=== PATIENT | female | born 1955 | race Caucasian/White ===

== ENCOUNTER → 2020-06-11 09:29 | Outpatient (CLI) | payer MEDICARE, SELFPAY ==
--- NOTE | ~2020-06-11 | MR_ITS ---
EXAMINATION: MR shoulder LT wo con DATE: 06/11/2020 10:19 INDICATION: Left shoulder calcific tendinitis TECHNIQUE: Magnetic resonance imaging (MRI) of the left shoulder was performed without intravenous co ntrast. Sequences included axial PD-weighted FS FSE, coronal oblique PD-weighted FS FSE, coronal obli que T2-weighted FS FSE, sagittal PD-weighted FS FSE, and sagittal T1-weighted SE. COMPARISON: None. FINDINGS: Coracoacromial arch: The acromion undersurface is curved in morphology (type II). Tiny subacromial spur along the acromial insertion of the normal coracoacromial ligament. Mild acromioclavicular osteoarthritis. Rotator cuff: Moderate supraspinatus and mild infraspinatus tendinopathy. Small partial-thickness tear along the bu rsal side of the superior facet insertion of the supraspinatus tendon measuring 4 mm AP, 1-2 mm in me dial to lateral width and involving approximately one third of the tendon thickness. There is mild fo cus of low signal intensity along side the tear which likely represents the calcification related to calcific tendinitis as seen at this location on the prior radiographs. The teres minor and subscapula ris tendons are normal. Normal rotator cuff muscle bulk and signal. Biceps tendon, glenoid labrum and glenohumeral cartilage: Long head of the biceps tendon is normal. Glenoid labrum is normal. Glenohumeral cartilage is normal. Fluid: Physiologic amount of fluid in the glenohumeral joint and biceps tendon sheath. No loose osteochondra l bodies. Small amount of fluid in the subacromial/subdeltoid bursa consistent with mild bursitis. Bones: Normal marrow signal with no edema, fracture or abnormal marrow replacing process. IMPRESSION: 1. Supraspinatus calcific tendinitis with moderate surrounding tendinopathy and small mild bursal paul ed tear at the superior facet insertion. 2. Mild subacromial/subdeltoid bursitis. Reviewed, dictated and finalized at location A. WALL SPRAYER IMPRESSION: 1. Supraspinatus calcific tendinitis with moderate surrounding tendinopathy and small mild bursal sided tear at the superior facet insertion. 2. Mild subacromial/subdeltoid bursitis.
== END ==
PROVIDERS: Visit Provider Orthopaedic Surgery
DX: M75.32 Calcific tendinitis of left shoulder (principal); M75.52 Bursitis of left shoulder
CPT/HCPCS: 73221

== ENCOUNTER → 2020-10-24 01:18 | Outpatient (CLI) | payer MEDICARE, SELFPAY ==
[2020-10-24 16:44] LABS: SARS-CoV-2 RNA PCR Negative
== END ==
PROVIDERS: PCP Internal Medicine; Visit Provider Orthopaedic Surgery
DX: Z01.812 Encounter for preprocedural laboratory examination (principal); Z20.822 Contact with and (suspected) exposure to COVID-19
CPT/HCPCS: C9803; U0003; U0005

== ENCOUNTER 2020-10-27 00:10 | Day surgery (SDC) | payer MEDICARE, SELFPAY ==
[2020-10-13 13:02] VITALS: BMI 29.2
[2020-10-27] VITALS (13 sets, daily range): BP systolic 76–146; BP diastolic 42–58; PULSE 46–72; RESP 10–18; TEMP 35.7–36.5; O2SAT 91–96
--- NOTE | 2020-10-27 07:22 | WPDHPUPDATE1 ---
History and Physical Update Update Date/Time: 10/27/20 07:22 Subtle, 1 cm superficial scratches on both arms posteriorly. No evidence for infection or drainage. History and Physical has been reviewed, including an updated exam of the patient. There are NO changes in the patient's condition. Risks, benefits, and alternatives have been discussed and questions answered. Patient agrees to proceed with procedure.
--- NOTE | 2020-10-27 07:51 | WPDANESEPPF ---
Anes - Initial Pre Proc Eval Procedure: Operation Date: 10/27/20 11:00 Proposed Procedures p Left Shoulder Arthroscopic Rotator Cuff Repair with Subacromial Decompression - Ronni Blair MD Date/Time: 10/27/20 07:51 Surgeon: Ronni Blair MD Pre Op Diagnosis: partial rotator cuff tear, tendonitis left Patient Data Age: 65 Gender: F Height: 1.65 m Weight: 79.54 kg Allergies Allergy/AdvReac Type Severity Reaction Status Date / Time Penicillins Allergy Severe Rash Verified 10/27/20 09:44 Home Medications Medication Instructions Recorded Confirmed Type lorazepam 0.5 mg tablet 0.5 mg PO DAILY PRN 04/01/20 10/27/20 History tramadol 50 mg tablet 50 mg PO Q6H PRN 04/01/20 10/27/20 History Patient hx anesthesia problems: other (hypotension in PACU after Right shoulder sx, and ankle sx several years ago) Family hx anesthesia problems: none PMFSH Past Medical History Medical History Anxiety Chronic pain of right heel Surgical History Surgical History (Updated 10/27/20 @ 07:51 by Joe Buchanan DO) History of x3 Social History Social History Smoking status: Never smoker Second hand tobacco smoke exposure: No Alcohol intake: current Alcohol use details: STATES MAYBE 1-2 DRINKS A MONTH Substance use: never Substance use type: does not use Living arrangements: with family Spiritual care concerns: No Anes - Eval Final PreProcedure Day of Procedure 10/27/20 07:51 Patient weight: overweight Heart: regular rate and rhythm Lungs: clear to auscultation and normal air movement Airway: Mallampati scale class III Neurological: alert and oriented Last oral intake: >/= 8 hours ASA classification: II Emergent: no Anesthetic plan: proceed Anesthesia type and monitoring: general ETT and standard monitoring Informed Consent: The patient's anesthetic plan and its attendant risks and benefits were discussed with the patient/family/POA. Questions were solicited and answers provided to the satisfaction of the patient/family/POA.
--- NOTE | 2020-10-27 07:55 | WPDANESPNB ---
Anes - Peripheral Nerve Block Date/Time: 10/27/20 07:55 I have discussed with the patient/family/POA the placement of a peripheral nerve block for post-operative pain management, including associated risks, benefits, complications, and side effects. Alternative methods of post-operative analgesia were detailed. Questions were solicited and answers provided to the satisfaction of the patient/family/POA. Time-Out: A pre-procedural Time-Out was completed immediately before starting the procedure and confirmed: Patient Identification, Site, Procedure, Patient Position and the Availability of Requisite Equipment. Clinical Indications: Acute post-operative pain management requested by the operative surgeon. Nerve Block Insertion Note Anes-nerve block: interscalene left Patient position: supine Skin prep: chlorhexidine Needle: 22 gauge, stimulating, insulated echogenic needle. Needle length: 50 mm Technique: ultrasound Injectate: bupivacaine 0.5% with epi 5 mcg/ml (30cc- no epi) Observations: tolerated well Complications: none Procedure start time:: 1056 Procedure end time:: 1058
--- NOTE | 2020-10-27 09:35 | SUR.PREOP ---
Dr. Blair notified that patient has healing scratch on bilateral upper arms from exiting chicken coop. states he will see patient to decide if safe to proceed with surgery.
[2020-10-27] MEDS: ACETAMINOPHEN 500 MG TABLET 1000 MG PO (10:34)
[2020-10-27] MEDS: KETOROLAC 15 MG/ML VIAL (*BKC) IV PUSH (10:35)
[2020-10-27] MEDS: LACTATED RINGERS 1,000 ML 30 ML IV CONT ×2 (10:37→14:05)
[2020-10-27] MEDS: ceFAZolin 2 GM/D5W 50 ML 2 GM/50 ML BAG IVPB (11:05)
--- NOTE | 2020-10-27 14:31 | SUR.PHASEI ---
Simple mask removed at 1420.
[2020-10-27] MEDS: ONDANSETRON INJ 4 MG/2 ML VIAL IV PUSH (14:40)
[2020-10-27] MEDS: SCOPOLAMINE 1.5 MG PATCH TRANSDERM (14:52)
[2020-10-27] MEDS: diphenhydrAMINE HCl INJ 50 MG/ML VIAL 25 MG IV PUSH (14:54)
--- NOTE | 2020-10-27 16:18 | W.PM.PROC2 ---
Procedure Note - Detailed Date of Procedure 10/27/20 Pre-op Diagnosis partial rotator cuff tear, tendonitis left Post-op Diagnosis other (1. Left rotator cuff tear (complete) 2. SLAP tear 3. Subacromial impingement) Procedure Performed 1. Arthroscopic rotator cuff repair 2. Arthroscopic subacromial decompression 3. Arthroscopic biceps tenotomy Surgeon Ronni Blair MD Contract Technician Glenna Kilgore PA-C Anesthesia general and regional ( interscalene block) Findings The rotator cuff had a small rent in the articular side at the supraspinatus anteriorly. On the bursal side, the tear was quite significant, without any retraction but with a wide area of delamination off of the rotator cuff footprint. Repair was accomplished with 2 bone tunnels and 6 suture tapes. There was an extensive degenerative superior labral tear which was treated with biceps tenotomy. Evidence of significant external impingement treated with subacromial decompression. Description of Procedure Physician emergency medicine physician assistant, Glenna Kilgore PA-C, required for surgery; including patient positioning, draping, arthroscopic camera operation, maintaining instrument position, suture retrieval, wound closure, and dressing and sling placement. Preoperative antibiotics were given. An interscalene block was administered in the preoperative area. The patient was bought brought to the operating room. A general anesthetic was administered. The patient was carefully positioned in the lateral decubitus position. The head and neck were carefully positioned. The non operative extremity was also carefully positioned. The shoulder was prepped and draped in the usual sterile fashion. Examination was performed. Standard posterior and anterior arthroscopic portals were established. Inflow achieved with the arthroscopic pump using saline and epinephrine. The glenohumeral joint was carefully inspected. The articular cartilage was healthy. The degenerative slap tear was quite extensive. Partial articular side rotator cuff tearing was evident as well as a very small complete area at the supraspinatus. This was most evident when observed from the bursal side. Attention was turned to the subacromial space. A complete bursectomy was performed. The rotator cuff and footprint were lightly debrided. A modest acromioplasty was performed. The tear configuration was carefully assessed. At this point, 2 tunnels were created at the rotator cuff. The ArthroTunneler technique was utilized. Three sutures were passed through each tunnel. All sutures were then passed through the cuff tissue. The sutures were tied arthroscopically. The arthroscopic instruments were removed. The wounds were closed with 3-0 Monocryl subcuticular suture and steri strips. There were no complications. A sling was applied and the patient brought to the recovery room. Estimated Blood Loss -10.0 Drains No Pathology none sent Complications No immediate complications Condition stable Disposition PACU
== END 2020-10-27 17:01 | disposition home or self-care (01) ==
PROVIDERS: PCP Internal Medicine; Visit Provider Orthopaedic Surgery
PROC: (CPT 29805; principal; 2020-10-27 11:00)
DX: M75.122 Complete rotator cuff tear or rupture of left shoulder, not specified as traumatic (principal); M75.82 Other shoulder lesions, left shoulder; M75.32 Calcific tendinitis of left shoulder; G89.18 Other acute postprocedural pain; M25.812 Other specified joint disorders, left shoulder; F41.9 Anxiety disorder, unspecified
CPT/HCPCS: 29827; 29826; 64415; A9270; C9803; J0690; J1200; J1885; J2250; J2405; J3010; J7120; U0003; U0005

== ENCOUNTER → 2020-11-20 03:22 | Outpatient (CLI) | payer MEDICARE, SELFPAY ==
[2020-11-20 18:53] LABS: SARS-CoV-2 RNA PCR Negative
== END ==
PROVIDERS: PCP Internal Medicine; Visit Provider Internal Medicine Gastroenterology
DX: Z01.812 Encounter for preprocedural laboratory examination (principal); Z20.822 Contact with and (suspected) exposure to COVID-19
CPT/HCPCS: C9803; U0003; U0005

== ENCOUNTER 2020-11-23 01:39 | Day surgery (SDC) | payer MEDICARE, SELFPAY ==
[2020-11-19 16:09] VITALS: BMI 30.2
[2020-11-23] VITALS (7 sets, daily range): BP systolic 115–155; BP diastolic 52–78; PULSE 53–76; RESP 14–22; TEMP 36–36.4; O2SAT 99–100; BMI 30.4
--- NOTE | ~2020-11-23 | XR_ITS ---
EXAMINATION: XR ERCP DATE: 11/23/2020 13:48 INDICATION: Cholelithiasis. TECHNIQUE: 1 spot fluoroscopic image of the right upper quadrant was obtained during endoscopic retro grade cholangiopancreatography (ERCP). Fluoroscopy exposure time was 29 seconds. COMPARISON: None. FINDINGS: The endoscope is in the second portion of the duodenum. The biliary tree is not opacified o n this image. IMPRESSION: 1. Endoscope in the second portion of the duodenum. Please refer to the ERCP procedure note for addit ional details. Reviewed, dictated and finalized at location A. IMPRESSION: 1. Endoscope in the second portion of the duodenum. Please refer to the ERCP pr ocedure note for additional details.
--- NOTE | 2020-11-23 12:14 | P.PNAN_ITS ---
Anes - Initial Pre Proc Eval Procedure: Operation Date: 11/23/20 12:30 Proposed Procedures p Endoscopic Retro Cholangiopancreatogram - Aurelio Thomas MD Date/Time: 11/23/20 12:14 Surgeon: Aurelio Thomas MD Pre Op Diagnosis: biliary colic, abnormal LFT Patient Data Age: 65 Gender: F Height: 1.65 m Weight: 82.5 kg Allergies Allergy/AdvReac Type Severity Reaction Status Date / Time Penicillins Allergy Severe Rash Verified 11/23/20 12:09 Home Medications Medication Instructions Recorded Confirmed Type lorazepam 0.5 mg tablet 0.5 mg PO DAILY PRN 04/01/20 11/19/20 History tramadol 50 mg tablet 50 mg PO Q6H PRN 04/01/20 11/19/20 History oxycodone-acetaminophen 1 - 2 tablet PO Q4-6H PRN #30 10/27/20 11/19/20 Rx tablet MDD 8 tablets cholecalciferol (vitamin D3) 125 125 mcg PO DAILY 11/17/20 11/19/20 History mcg (5,000 unit) capsule vit C,D-Zt-jzkgw-lutein-zeaxan 1 tablet PO BID 11/19/20 11/19/20 History [PreserVision AREDS-2] Patient hx anesthesia problems: none Family hx anesthesia problems: none [facility] Past Medical History Medical History (Updated 11/23/20 @ 12:14 by Domenico Wyatt MD) Anxiety Chronic pain of right heel Obesity Surgical History Surgical History (Updated 11/23/20 @ 12:14 by Domenico Wyatt MD) History of x3 History of cholecystectomy History of shoulder surgery Social History Social History Smoking status: Never smoker Second hand tobacco smoke exposure: No Alcohol intake: current Alcohol use details: STATES MAYBE 1-2 DRINKS A MONTH Substance use: never Substance use type: does not use Living arrangements: with family Spiritual care concerns: No Anes - Eval Final PreProcedure Day of Procedure 11/23/20 12:14 Patient weight: obese Heart: regular rate and rhythm Lungs: clear to auscultation Airway: Mallampati scale class II Neurological: alert and oriented Last oral intake: >/= 8 hours ASA classification: II Emergent: no Anesthetic plan: proceed Anesthesia type and monitoring: general ETT and standard monitoring Informed Consent: The patient's anesthetic plan and its attendant risks and benefits were discussed with the patient/family/POA. Questions were solicited and answers provided to the satisfaction of the patient/family/POA.
--- NOTE | 2020-11-23 12:21 | PM.HPGS ---
History of Present Illness History of Present Illness Consent: Risks, benefits, and alternatives have been discussed and questions answered. Patient agrees to proceed with procedure. Chief complaint: biliary colic, abnormal LFT Narrative: Cecile Hu is a 65 year old female with a history of gallstones and cholecystectomy who is now having recurrent gallbladder type attacks. Her liver enzymes have been elevated periodically, suggestive of choledocholithiasis. an MRI was done that was negative. Because the high suspicion that she has common bile duct sludge or stones she is undergoing ERCP. The procedure and risks such as the possibility of bleeding or perforation or pancreatitis and even hospitalization and or the need for surgery has all been discussed Review of Systems Review of Systems: All systems reviewed & are unremarkable except as noted in HPI and below PMFSH Past Medical History Medical History Anxiety Chronic pain of right heel Obesity Surgical History Surgical History History of x3 History of cholecystectomy History of shoulder surgery Social History Social History Smoking status: Never smoker Second hand tobacco smoke exposure: No Alcohol intake: current Alcohol use details: STATES MAYBE 1-2 DRINKS A MONTH Substance use: never Substance use type: does not use Living arrangements: with family Spiritual care concerns: No Meds Home Medications and Allergies Home Medications Medication Instructions Recorded Confirmed Type lorazepam 0.5 mg tablet 0.5 mg PO DAILY PRN 04/01/20 11/19/20 History tramadol 50 mg tablet 50 mg PO Q6H PRN 04/01/20 11/19/20 History oxycodone-acetaminophen 1 - 2 tablet PO Q4-6H PRN #30 10/27/20 11/19/20 Rx tablet MDD 8 tablets cholecalciferol (vitamin D3) 125 125 mcg PO DAILY 11/17/20 11/19/20 History mcg (5,000 unit) capsule vit C,X-Hg-machm-lutein-zeaxan 1 tablet PO BID 11/19/20 11/19/20 History [PreserVision AREDS-2] Allergies Allergy/AdvReac Type Severity Reaction Status Date / Time Penicillins Allergy Severe Rash Verified 11/23/20 12:09 Exam Resp: Auscultation: clear to auscultation bilaterally Cardio: Rate: regular rate Rhythm: regular rhythm GI: GI Palp: Yes Soft to palpation and No Tenderness to palpation present (GI) Assessment and Plan Assessment and plan (1) Abnormal liver enzymes: Code(s): R74.8 - Abnormal levels of other serum enzymes Status: Acute Assessment and Plan: ERCP with possible sphincterotomy or stent placement
[2020-11-23] MEDS: LACTATED RINGERS 1,000 ML 150 ML IV CONT (12:27)
[2020-11-23] MEDS: INDOMETHACIN 50 MG SUPP.RECT 100 MG RECTAL (13:04)
[2020-11-23] MEDS: ACETAMINOPHEN 500 MG TABLET 1000 MG PO (14:51)
== END 2020-11-23 14:55 | disposition home or self-care (01) ==
PROVIDERS: PCP Internal Medicine; Visit Provider Internal Medicine Gastroenterology
PROC: (CPT 43260; principal; 2020-11-23 12:30)
DX: R74.8 Abnormal levels of other serum enzymes (principal); K83.1 Obstruction of bile duct; F41.9 Anxiety disorder, unspecified; E66.9 Obesity, unspecified; Z68.30 Body mass index [BMI] 30.0-30.9, adult
CPT/HCPCS: 43260; 74329; A9270; C9803; J1100; J1610; J2405; J2704; J3010; J7120; U0003; U0005

== ENCOUNTER → 2021-12-07 14:03 | Outpatient (CLI) | payer MEDICARE, SELFPAY ==
--- NOTE | ~2021-12-07 | MR_ITS ---
EXAMINATION: MR cervical spine wo con DATE: 12/07/2021 14:38 INDICATION: Left-sided cervical radiculopathy. TECHNIQUE: Magnetic resonance imaging (MRI) of the cervical spine was performed without intravenous c ontrast. Sequences included sagittal T2-weighted FSE, sagittal T2-weighted FS FSE, sagittal T1-weight ed FSE, axial MERGE, and axial T2-weighted FSE. COMPARISON: None FINDINGS: There is 2 mm anterolisthesis of T7 on T1. Vertebral body heights are normal. There is mild ly decreased disc height at C4-C5, moderately decreased disc height at C5-C6, and severely decreased disc height at C6-C7. The spinal cord signal intensity is normal. The following disc levels are speci fically discussed: C2-C3: The disc does not extend beyond the endplate margin. There is no uncovertebral joint osteoarth ritis. There is ankylosis of the facet joints with moderate hypertrophy. There is mild right neural f oraminal stenosis. There is no central canal stenosis. C3-C4: There is a central extrusion. There is moderate right and mild left uncovertebral joint osteoa rthritis. There is severe right and moderate left facet joint osteoarthritis. There is mild bilateral neural foraminal stenosis. There is mild central canal stenosis. C4-C5: The disc does not extend beyond the endplate margin. There is mild bilateral uncovertebral harvinder nt osteoarthritis. There is severe bilateral facet joint osteoarthritis. There is mild right neural f oraminal stenosis. There is no central canal stenosis. C5-C6: The disc is bulging. There is severe bilateral uncovertebral joint osteoarthritis. There is se josie bilateral facet joint osteoarthritis. There is moderate right and mild left neural foraminal jesus nosis. There is mild central canal stenosis. C6-C7: The disc is bulging. There is severe bilateral uncovertebral joint osteoarthritis. There is mo derate bilateral facet joint osteoarthritis. There is moderate bilateral neural foraminal stenosis. T here is mild central canal stenosis. C7-T1: The disc does not extend beyond the endplate margin. There is no uncovertebral joint osteoarth ritis. There is moderate right and severe left facet joint osteoarthritis. There is mild left neural foraminal stenosis. There is no central canal stenosis. IMPRESSION: 1. Severe cervical spondylosis. Reviewed, dictated and finalized at location A.
== END ==
PROVIDERS: PCP Internal Medicine; Visit Provider Orthopaedic Surgery
DX: M47.22 Other spondylosis with radiculopathy, cervical region (principal)
CPT/HCPCS: 72141

== ENCOUNTER 2023-11-01 10:28 | Outpatient (CLI) | payer MEDICARE, SELFPAY ==
--- NOTE | ~2023-11-01 | CT_ITS ---
EXAMINATION: CT LE RT wo con DATE: 11/01/2023 10:02 INDICATION: Right knee osteoarthritis for preoperative evaluation. TECHNIQUE: High resolution computed tomography (CT) of the right lower limb from the hip through the ankle was performed without intravenous contrast. Additional sagittal and coronal reconstructions wer e performed. Automated exposure control and iterative reconstruction technique were employed. The dos e-length product was 1786.80 mGy-cm. COMPARISON: None FINDINGS: Mid diaphyseal fracture deformity of the right femur which is healed with slight zigzag deformity. Dallin ne alignment is otherwise normal. No acute fracture. Mild right hip osteoarthritis. Chondrocalcinosis and tricompartmental osteoarthritis at the right knee, severe at the medial compartment mild degener ative subchondral changes with eburnation mild cystlike change along the medial tibial plateau and we ightbearing medial femoral condyle. At least mild osteoarthritis in the lateral and patellofemoral co mpartments. There are a few scattered loose osteochondral bodies at the recess is anterior and high school assistant principal ior to the intercondylar notch. No right knee joint effusion. Additional mild polyarticular osteoarth ritis at multiple joints the right foot and ankle. No ankle joint effusion. There are couple small lo ose osteochondral bodies at the anterior recess of the ankle joint. Dystrophic calcifications along t he posterior talofibular ligament. Small heterotopic ossicle along the anterior margin of the lateral malleolus with along the anterior talofibular ligament and small enthesophytes along the anterior to the medial malleolus. IMPRESSION: 1. Chondrocalcinosis severe medial compartment predominant tricompartmental osteoarthritis of the rig ht knee. 2. Old healed fracture deformity of the mid right femoral diaphysis. Reviewed, dictated and finalized at location A. IMPRESSION: 1. Chondrocalcinosis severe medial compartment predominant tricompartmental ost eoarthritis of the right knee. 2. Old healed fracture deformity of the mid right femoral diaphysis.
--- NOTE | 2023-11-01 10:02 | ECG_ITS ---
Test Date: 2023-11-01 10:16:40 Measurements Intervals [place] Rate: 47 P: 50 WV: 160 QRS: 16 QRSD: 84 T: -21 QT: 452 QTc: 403 Interpretive Statements SINUS BRADYCARDIA BORDERLINE ST-T WAVE ABNORMALITY- ANT/INF LEADS ABNORMAL ECG No previous ECG available for comparison Electronically Signed On 11-01-2023 10:23:48 CDT by Moisés Vivas D.O.
[2023-11-01 11:49] LABS: Albumin Level 4.3 g/dL (3.5-5.1); Estimated Glomerular Filt Rate > 60
== END 2023-11-01 10:29 | disposition home or self-care (01) ==
PROVIDERS: PCP Internal Medicine; Visit Provider Orthopaedic Surgery
DX: M17.11 Unilateral primary osteoarthritis, right knee (principal); R94.31 Abnormal electrocardiogram [ECG] [EKG]
CPT/HCPCS: 36415; 73700; 82040; 82565; 93005

== ENCOUNTER 2023-12-13 09:12 | Outpatient (CLI) | payer MEDICARE, SELFPAY ==
[2023-12-13 13:19] LABS: Basophils Absolute Auto 0.1 K/mm3 (0.0-0.1); Basophils Percent Auto 0.9 % (0.2-1.2); Eosinophils Absolute Auto 0.1 K/mm3 (0-0.3); Eosinophils Percent Auto 1.8 % (0-4.4); Hematocrit 49.7 % (37.0-47.0); Hemoglobin 15.2 g/dL (12.0-15.0); Immature Granulocyte Absolute 0.01 K/mm3 (0.00-0.031); Immature Granulocyte Percent A 0.1 % (0-0.5); Lymphocytes Absolute Auto 3.58 K/mm3 (0.9-3.2); Lymphocytes Percent Auto 45.9 % (18.3-44.2); Mean Corpuscular HGB Conc 30.6 g/dl (32-36); Mean Corpuscular Hemoglobin 28.5 pg (26-34); Mean Corpuscular Volume 93.2 fl (80-100); Mean Platelet Volume 11.4 fl (7.4-10.4); Monocytes Absolute Auto 0.6 K/mm3 (0.1-0.6); Monocytes Percent Auto 7.6 % (2.6-8.5); Neutrophils Absolute Auto 3.4 K/mm3 (1.3-6.7); Neutrophils Percent Auto 43.7 % (45.5-73.1); Platelet Count Result 301 k/mm3 (150-375); Red Blood Count 5.33 M/mm3 (4.2-5.4); White Blood Count 7.8 K/mm3 (4.5-10.0)
[2023-12-13 13:34] LABS: Albumin Level 4.3 g/dL (3.5-5.1); Estimated Glomerular Filt Rate > 60; Glucose 80 mg/dL (65-110)
[2023-12-13 13:36] LABS: Urine Cotinine NEGATIVE
[2023-12-13 13:43] LABS: Hemoglobin A1C 5.8 % (<5.7)
[2023-12-13 14:41] LABS: MRSA (PCR) NOT DETECTED (NOT DETECTE)
== END 2023-12-13 09:13 | disposition home or self-care (01) ==
PROVIDERS: PCP Internal Medicine; Visit Provider Orthopaedic Surgery
DX: M17.11 Unilateral primary osteoarthritis, right knee (principal); Z01.818 Encounter for other preprocedural examination
CPT/HCPCS: 80307; 82040; 82565; 82947; 83036; 85025; 87641

== ENCOUNTER 2024-01-08 02:53 | Day surgery (SDC) | payer MEDICARE, SELFPAY ==
[2023-12-13 09:57] VITALS: BMI 31.3
--- NOTE | 2023-12-13 10:31 | PC.NURSE ---
Report to the Outpatient Waiting Room, entrance under the green pavilion located off [facility], at time __10:00 AM on date __01/08/24 . Planned Procedure Time: _12:00 PM . Time changes happen often and if your time is changed the preop area will call you the afternoon before. - You and your visitor will be asked to self-screen and do not enter if you have any COVID symptoms. - A mask is optional within the hospital at this time. Patients may have clear liquids (water, carbonated beverages, clear teas, apple juice) until 3 hours prior to surgery(9:00AM) with a maximum of 20 ounces. - No food from midnight until time of surgery - Infants may have breast milk until 4 hours before surgery, infant formula 6 hours prior to surgery. - Children will be allowed to drink immediately following surgery. If applicable, please bring a bottle or sippy cup to assist with drinking. Juice, water, soda, and popsicles are readily available. For infants on formula, please bring formula the day of surgery. Pacifiers are allowed. Take the following medications with a SIP of water the morning of surgery: __CLONAZEPAM IF NEEDED, DO NOT STOP ANY OF YOUR OTHER PRESCRIPTION MEDICATIONS PRIOR TO SURGERY ?EXCEPT THE FOLLOWING Medications to discontinue per physician _HOLD ALL VITAMINS 3 DAYS PRE OP.LAST DOSE 01/04/24 TOTAL JOINT CLASS 12/27/23 AT 10 AM Please no make-up, nail croatian, hairspray, perfume, deodorant, or body powder the day of surgery. No jewelry (including any body piercings) or valuables the day of surgery, leave them at home. Please take a shower or bath the night before, or the morning of, surgery with an antibacterial soap. Wear comfortable, loose fitting clothing. Children are encouraged to wear pajamas. - Jewelry must be removed prior to entering the operating room. Rings and piercings that are not removed may be cut off. - The hospital will not accept responsibility for valuables. - Please leave all valuables, including medications, at home the day of surgery. If you are going home after surgery, a licensed guard driver must drive you home. - NO public transportation without another adult if you receive anesthesia. - We recommend that an adult stay with you for 24 hours following discharge. - We also recommend that you do not drive, make important decision, drink alcoholic beverages, or take any drugs that were not prescribed by your health care provider for at least 24 hours after your discharge time. Follow any additional instructions given to you from your surgeon. If you or anyone in your household have experienced Covid symptoms in the past week, please notify your surgeon or the nurse liaison at the phone number below for possible testing. VERBAL AND WRITTEN instructions given to ____PATIENT and asked if any additional questions and then verbalized understanding. Patient advised to call surgeon office or pre surgery nurse liaison [phone] if any additional questions.
[2023-12-13 10:45] VITALS: BP 142/71; PULSE 60; RESP 18; TEMP 36.6; O2SAT 100
[2024-01-08] VITALS (16 sets, daily range): BP systolic 97–136; BP diastolic 55–85; PULSE 52–75; RESP 10–18; TEMP 35.4–36.6; O2SAT 92–100; BMI 33.5
--- NOTE | ~2024-01-08 | XR_ITS ---
EXAMINATION: [id number] DATE: 01/08/2024 14:41 INDICATION: Postoperative evaluation following right knee arthroplasty. TECHNIQUE: Anteroposterior and lateral views of the right knee were obtained. COMPARISON: None. FINDINGS: Right total knee arthroplasty with patellar resurfacing appears well seated and in near anatomic alig nment. No fractures identified. Expected postoperative subcutaneous and intra-articular gas. IMPRESSION: 1. Right total knee arthroplasty, negative for postoperative purposes. Reviewed, dictated and finalized at location B.
[2024-01-08] MEDS: ACETAMINOPHEN 500 MG TABLET 1000 MG PO (10:08)
[2024-01-08] MEDS: LACTATED RINGERS 1,000 ML 30 ML IV CONT ×2 (10:50→14:22)
[2024-01-08] MEDS: TRANEXAMIC ACID 1,000MG/ISO100 1,000 MG/100 ML BAG 200 MG IVPB (11:12)
--- NOTE | 2024-01-08 12:00 | P.PNAN_ITS ---
Anes - Initial Pre Proc Eval Procedure: Operation Date: 01/08/24 12:00 Proposed Procedures p Right Custom Total Knee Arthroplasty - Ronni Blair MD Date/Time: 01/08/24 12:00 Surgeon: Ronni Blair MD Pre Op Diagnosis: primary oa right knee Patient Data Age: 68 Gender: F Height: 1.65 m Weight: 84.1 kg Last Vital Signs Temp 36.6 C 01/08/24 11:06 Pulse 64 01/08/24 11:06 Resp 16 01/08/24 11:06 BP 125/71 01/08/24 11:06 Pulse Ox 97 01/08/24 11:06 O2 Del Method Room Air 01/08/24 11:06 Allergies Allergy/AdvReac Type Severity Reaction Status Date / Time Penicillins Allergy Severe Rash Verified 01/08/24 10:01 Home Medications Medication Instructions Recorded Confirmed Type tramadol 50 mg tablet 50 mg PO Q6H PRN Pain 04/01/20 01/08/24 History clonazepam 0.5 mg tablet 0.5 mg PO PRN PRN Anxiety 12/13/23 01/08/24 History lutein 20 mg-zeaxanthin 4 mg 1 cap PO DAILY 12/13/23 01/08/24 History capsule Laboratory Tests 01/08/24 10:04 Blood Type Pending Antibody Screen Pending Patient hx anesthesia problems: none Family hx anesthesia problems: none Results Review: All pre-operative results and documents have been reviewed as part of the pre- operative evaluation. [facility] Past Medical History Medical History Anxiety Chronic pain of right heel Obesity Surgical History Surgical History History of x3 History of cholecystectomy History of shoulder surgery Social History Social History Smoking status: Never smoker Second hand tobacco smoke exposure: No Additional smoking assessment comments: DENIES ANY FORM OF TOBACCO Alcohol intake: current Alcohol use details: ONE DRINK PER MONTH Substance use: never Substance use type: does not use Do You Feel Safe in your Home?: Yes Lack of Transportation: No Lack of Food: Never True Current Housing: I Have Housing Concerned About Future Housing: No Difficulty Paying Gas/Electric Bills: No Difficulty Paying for Meds: No Currently Unemployed: No Education: High School Diploma/GED Difficulty w/ Childcare or Family Care: No Living arrangements: with family Spiritual care concerns: No Anes - Eval Final PreProcedure Day of Procedure 01/08/24 12:00 Patient weight: obese Heart: regular rate and rhythm Lungs: clear to auscultation Airway: Mallampati scale class II Neurological: alert and oriented Last oral intake: >/= 8 hours ASA classification: II Emergent: no Anesthetic plan: proceed Anesthesia type and monitoring: general ETT and standard monitoring Results Review: All pre-operative results and documents have been reviewed as part of the pre- operative evaluation. Informed Consent: The patient's anesthetic plan and its attendant risks and benefits were discussed with the patient/family/POA. Questions were solicited and answers provided to the satisfaction of the patient/family/POA.
--- NOTE | 2024-01-08 12:13 | WPDHPUPDATE1 ---
History and Physical Update Update Date/Time: 01/08/24 12:13 History and Physical has been reviewed, including an updated exam of the patient. There are NO changes in the patient's condition. Risks, benefits, and alternatives have been discussed and questions answered. Patient agrees to proceed with procedure.
[2024-01-08] MEDS: ceFAZolin 2 GM/D5W 50 ML 2 GM/50 ML BAG IVPB ×2 (12:34→20:28)
[2024-01-08] MEDS: SODIUM CHLORIDE 0.9% IV 37.7 ML, MORPHINE SULFATE INJ (*CRX) 2 MG, ROPivacaine HCL 1% 2... INFILTRATE (12:51)
[2024-01-08] MEDS: GENTAMICIN BONE CEMENT REFOBACIN 1 EACH TOPICAL (13:35)
[2024-01-08] MEDS: TRANEXAMIC ACID 1,000 MG/10 ML AMPUL 1000 MG IV PUSH (13:45)
--- NOTE | 2024-01-08 14:40 | W.PM.PROC2 ---
Procedure Note - Detailed Date of Procedure 01/08/24 Pre-op Diagnosis Right knee osteoarthritis. Post-op Diagnosis Same Procedure Performed Total knee arthroplasty, right. Surgeon Ronni Blair MD Anesthesia General and Regional (Subsartorial block.) Findings Custom knee with optimal fit. Satisfactory bone quality. No significant ligament releases. 7C polyethylene inserts. Description of Procedure Preoperative antibiotics were given. The limb was prepped and draped in the usual sterile fashion with a well-padded tourniquet high on the thigh. The limb was exsanguinated and the tourniquet inflated to 300 mmHg. A longitudinal incision was created just medial to the patella. A trivector approach to the knee was performed. Arthrotomy was taken down through the joint capsule. No significant releases were initially taken. The femur was exposed and the F1 jig was applied. The coring tool was used to remove the cartilage for the F2 jig to sit flush with the bone. The jig was pinned and the distal cut carefully taken. Caliper measurements confirmed appropriate bony resections according to the preoperative templated plan. The F4 cutting jig for the femur was applied, at the standard rotation. The AP and anterior chamfer cuts were taken. The F5 jig was applied and the posterior chamfer cuts were taken. The tibia was prepared using the T1 jig, after removing cartilage for the jig contact points. Proper alignment was checked with the alignment minerva. The tibia was cut using the T1u guide. Gap balancing was performed. Gap measurements were taken and the knee was trialed. Excellent alignment and soft tissue balancing was confirmed. The posterior cruciate ligament was recessed along the proximal tibia. The patella was cut for resurfacing. Three lug holes were drilled. Meniscal remnants were removed. The trial components were assembled. Excellent range of motion and proper soft tissue balancing were confirmed throughout the full range of motion. Patellar tracking was excellent. The knee was copiously irrigated periodically throughout the procedure. The real implants were cemented into position. Excess cement was carefully removed. The wound was closed in layers with interrupted #1 Vicryl suture, 2-0 strata fix suture, 0 strata fix suture, 2-0 strata fix suture. Steri-Strips placed on the skin with the knee flexed. Sterile bulky dressing applied. The patient was brought to the recovery room in stable condition. There were no complications. Implants Conformis Custom total knee arthroplasty. Cemented. Cruciate retaining. 7C insert. 32 mm oval patella. Estimated Blood Loss 50 Tourniquet Time Total Tourniquet Time: 59 Drains No Complications No immediate complications Condition Stable Disposition PACU [facility] Billing Surgery - Charge Forward: Surgery Billing
[2024-01-08] MEDS: fentaNYL CITRATE INJ (*CRX) 100 MCG/2 ML VIAL 25 MCG IV PUSH ×8 (14:44→15:12)
[2024-01-08] MEDS: HYDROmorphone HCL INJ (*CRX) 1 MG/ML SYR 0.25 MG IV PUSH ×4 (15:21→15:40)
[2024-01-08] MEDS: diazePAM INJ (*CRX) 10 MG/2 ML SYRINGE 2 MG IV PUSH (15:46)
[2024-01-08] MEDS: oxyCODONE HCL (*CRX) 5 MG TAB IR PO (16:06)
--- NOTE | 2024-01-08 17:52 | ADMGEN ---
This patient, Cecile Hu, was admitted to 3 [facility] Surg Room 300-01. Patient/family oriented to hospital policies and general routines including ID bracelet, bed and alarms, visiting hours, pain management, procedures, bathroom and other care routines, personal items, smoking policy, room service/diet, and visiting hours. Information on how to activate the Rapid Response Team has been discussed. Patient/Family are encouraged to report perceived risks to care and to ask questions if they do not understand what they are told or what they should do.
[2024-01-08] MEDS: SODIUM CHLORIDE 0.9% IV 1,000 ML 125 ML IV CONT (17:56)
[2024-01-08] MEDS: ACETAMINOPHEN 325 MG TABLET 650 MG PO (17:57)
[2024-01-08] MEDS: SENNA/DOCUSATE SODIUM TABLET 2 TAB PO (17:57)
[2024-01-08] MEDS: ONDANSETRON INJ 4 MG/2 ML VIAL IV PUSH (17:59)
[2024-01-08] MEDS: oxyCODONE/ACETAMINOPHEN (*CRX) 10-325 MG TABLET 1 TAB PO (18:00)
[2024-01-08] MEDS: ASPIRIN 81 MG ENTERIC TABLET PO (20:28)
[2024-01-09] MEDS: ONDANSETRON INJ 4 MG/2 ML VIAL IV PUSH (00:15)
[2024-01-09] MEDS: ACETAMINOPHEN 325 MG TABLET 650 MG PO ×2 (00:15→05:09)
[2024-01-09 00:25] VITALS: BP 132/59; PULSE 55; RESP 18; TEMP 36.3; O2SAT 96
[2024-01-09 04:15] VITALS: BP 142/68; PULSE 76; RESP 20; TEMP 35.7; O2SAT 91
[2024-01-09] MEDS: ceFAZolin 2 GM/D5W 50 ML 2 GM/50 ML BAG IVPB (05:09)
[2024-01-09 06:58] LABS: Basophils Percent Auto 0.3 % (0.2-1.2); Eosinophils Percent Auto 0.1 % (0-4.4); Hematocrit 39.9 % (37.0-47.0); Hemoglobin 12.6 g/dL (12.0-15.0); Immature Granulocyte Absolute 0.04 K/mm3 (0.00-0.031); Immature Granulocyte Percent A 0.3 % (0-0.5); Lymphocytes Absolute Auto 2.26 K/mm3 (0.9-3.2); Lymphocytes Percent Auto 19.3 % (18.3-44.2); Mean Corpuscular HGB Conc 31.6 g/dl (32-36); Mean Corpuscular Hemoglobin 29.4 pg (26-34); Mean Platelet Volume 11.3 fl (7.4-10.4); Monocytes Percent Auto 8.8 % (2.6-8.5); Neutrophils Absolute Auto 8.3 K/mm3 (1.3-6.7); Neutrophils Percent Auto 71.2 % (45.5-73.1); Platelet Count Result 251 k/mm3 (150-375); Red Blood Count 4.29 M/mm3 (4.2-5.4); Red Cell Distribution Width 13.5 % (11.5-14.5); White Blood Count 11.7 K/mm3 (4.5-10.0)
[2024-01-09 07:20] LABS: Anion Gap 8 mmol/L (4-12); Blood Urea Nitrogen 14 mg/dL (7-17); Calcium 8.6 mg/dL (8.4-10.2); Carbon Dioxide 24 mmol/L (22-30); Chloride 106 mmol/L (98-107); Estimated CRCL calculation 72 ml/min; Estimated Glomerular Filt Rate > 60; Glucose 103 mg/dL (65-110); Sodium 138 mmol/L (137-145)
[2024-01-09] MEDS: SENNA/DOCUSATE SODIUM TABLET 2 TAB PO (07:54)
[2024-01-09] MEDS: OPTI-GEN TAB 1 TABLET PO (07:55)
[2024-01-09] MEDS: oxyCODONE/ACETAMINOPHEN (*CRX) 10-325 MG TABLET 1 TAB PO (07:55)
[2024-01-09] MEDS: predniSONE 5 MG TABLET PO (07:55)
[2024-01-09] MEDS: ASPIRIN 81 MG ENTERIC TABLET PO (07:55)
--- NOTE | 2024-01-09 07:56 | PM.DS ---
DS: Admitting Diagnosis Discharge Date 01/09/24 Admitting Diagnosis KNee arthritis. DS: Discharge Diagnosis Discharge Diagnosis (1) Status post total right knee replacement: Code(s): Z96.651 - Presence of right artificial knee joint Status: Acute Assessment and Plan: Postop day 1: Right total knee arthroplasty. Patient tolerated procedure well. No complications. Pain manageable with pain medication. No numbness or tingling. We had a lengthy discussion regarding postoperative wound care, limitations, expectations, and exercises. Patient shows good understanding. She has had initial physical therapy and is tolerating it well. DVT prophylaxis: 81 mg baby aspirin b.i.d. for 14 days. Pain medication: Percocet. Patient has followup appointment with Dr. Blair in 3 weeks. DS: Summary Hospital Course Reason for hospitalization: Total knee arthroplasty Hospital Course: Patient tolerated procedure well. Has had initial PT/OT. Status at Discharge Functional status at discharge: uses cane/walker Overall status at discharge: patient is progressing back to baseline Time Spent with Patient Time attestation: Total time spent providing and/or coordinating discharge services: Exam Narrative: 68-year-old overweight female. Resting comfortably in chair. Alert and oriented x3. No acute distress. Wearing compression socks bilaterally. Dressing intact without drainage. Mild swelling. No ecchymosis. No erythema. No hematoma. Range of motion limited due to pain. Calf nontender. Neurologic status intact. No varicosities. Distal pulses palpable. DS: Data Data Completed and Pending Labs on day of discharge: Labs from last 24 hours 01/09/24 01/08/24 05:54 10:04 WBC 11.7 H RBC 4.29 Hgb 12.6 Hct 39.9 MCV 93.0 MCH 29.4 MCHC 31.6 L RDW 13.5 Plt Count 251 MPV 11.3 H Immature Gran % (Auto) 0.3 Neut % (Auto) 71.2 Lymph % (Auto) 19.3 Mercer % (Auto) 8.8 H Eos % (Auto) 0.1 Baso % (Auto) 0.3 Lymph # (Auto) 2.26 Mercer # (Auto) 1.0 H Eos # (Auto) 0.0 Baso # (Auto) 0.0 Abs Immat Gran (auto) 0.04 H Absolute Neuts (auto) 8.3 H Absolute Nucleated RBC 0.000 Nucleated RBC % 0.0 Sodium 138 Potassium 4.0 Chloride 106 Carbon Dioxide 24 Anion Gap 8 BUN 14 Creatinine 0.70 Estim Creat Clear Calc 72 Estimated GFR > 60 Glucose 103 Calcium 8.6 Blood Type A Negative Antibody Screen Negative Discharge Plan Discharge Patient Disposition: Home, Self-Care Discharge Instructions: See green instruction sheet Stand Alone Forms: General Discharge Instructions Follow-up/Referrals: Glenna Rapp PA [[facility] [employer]] - Discharge Medications: New aspirin 81 mg tablet,delayed release (DR/EC) 81 mg PO BID 14 Days Qty: 28 0RF meloxicam 15 mg tablet 15 mg PO DAILY Qty: 30 0RF Rx Instructions: Cut in half. Take 1/2 in morning and 1/2 at night. Take with food. Stop if stomach upset. prednisone 5 mg tablet 5 mg PO DAILY 21 Days Qty: 21 0RF oxycodone-acetaminophen 5-325 mg tablet 1 - 2 tablet PO Q4-6H PRN (Reason: pain) 7 Days Qty: 30 0RF Continued clonazepam 0.5 mg tablet 0.5 mg PO PRN PRN (Reason: Anxiety) Patient Comments: Pt stated it has been awhile lutein-zeaxanthin 20-4 mg Capsule 1 cap PO DAILY Held tramadol 50 mg tablet 50 mg PO Q6H PRN (Reason: Pain)
[2024-01-09 08:00] VITALS: BP 118/53; PULSE 55; RESP 18; TEMP 36.6; O2SAT 94
== END 2024-01-09 10:10 | disposition home or self-care (01) ==
LOC: ANHSURGERY 09:43 → ANH3MEDSUR 16:43
PROVIDERS: PCP Internal Medicine; Visit Provider Orthopaedic Surgery
PROC: (CPT 27447; principal; 2024-01-08 12:00)
DX: M17.11 Unilateral primary osteoarthritis, right knee (principal); F41.9 Anxiety disorder, unspecified; E66.9 Obesity, unspecified; Z68.33 Body mass index [BMI] 33.0-33.9, adult
CPT/HCPCS: 27447; 36415; 73560; 80048; 85025; 86850; 86900; 86901; 97110; 97161; 97165; 97530; A9270; C1713; C1776; J0171; J0690; J1100; J1170; J1885; J2270; J2405; J2704; J2795; J3010; J3360; J7030; J7120; J7512

== ENCOUNTER 2024-02-23 09:45 | Outpatient (CLI) | payer MEDICARE, SELFPAY ==
--- NOTE | ~2024-02-23 | XR_ITS ---
Right Knee Technique: AP, lateral, and sunrise views were obtained. Clinical History: Arthroplasty follow-up COMPARISON: 09/06/2023 Findings: No fracture or dislocation is seen. Status post interval right knee arthroplasty. No hardwa re complication. Soft tissues are unremarkable. No joint effusion is seen. Impression: Status post right knee arthroplasty. No hardware complication. Reviewed, dictated and finalized at location . Impression: Status post right knee arthroplasty. No hardware complication.
== END 2024-02-23 09:46 | disposition home or self-care (01) ==
LOC: MICIMG 09:47
PROVIDERS: PCP Orthopaedic Surgery; Visit Provider Orthopaedic Surgery
DX: Z96.651 Presence of right artificial knee joint (principal)
CPT/HCPCS: 73562